=== PATIENT | male | born 1945 | race Caucasian/White ===

== ENCOUNTER 2019-07-06 15:52 | Emergency (ER) | payer MEDICARE, OTHER ==
[2019-07-06] MEDS ORDERED: Lidocaine 1% 10 ML MDV INJECT ONE (17:03)
--- NOTE | 2019-07-06 17:12 | EDM.PDOC ---
ED HPI GENERAL MEDICAL PROBLEM - General Chief Complaint: Laceration Stated Complaint: R HAND LAC Time Seen by Provider: 07/06/19 16:18 Source of Information: Reports: Patient, RN Notes Reviewed History Limitations: Reports: No Limitations - History of Present Illness INITIAL COMMENTS - FREE TEXT/NARRATIVE: Patient is a 74-year-old male who presents to the ED for the evaluation of a right index finger and right thumb laceration. Patient notes that around 3:30 PM today, he was using a miter saw to cut a piece of trim for a picture frame, when the miter saw ended up lacerating his right index finger, and the nail of his right thumb. Patient notes that he is right-hand dominant. This laceration is around 4 cm in length, fairly linear, and extends over the DIP and the PIP, this is on the radial aspect of the index finger. Patient is able to move the finger in all range of motion. He denies any numbness or tingling distal to the injury site. As for the thumb, there is a gouge taken out of the most distal nail tip, but there is no actual laceration that would be fixable on the thumb. Patient believes he is up-to-date on his tetanus immunization. Takes only aspirin daily for heart health, he is not on any actual blood thinner. Right Finger-Index Pain Score (Numeric/FACES): 8 - Related Data Allergies Allergy/AdvReac Type Severity Reaction Status Date / Time tramadol Allergy Other Verified 07/06/19 16:26 Home Meds: Home Meds Aspirin [Adult Low Dose Aspirin EC] 81 mg 07/06/19 [History] Doxycycline [Vibramycin] 100 mg PO BID #20 tab 07/06/19 [Rx] Metoprolol Tartrate 25 mg PO 07/06/19 [History] Past Medical History HEENT History: Reports: None Cardiovascular History: Reports: None Respiratory History: Reports: None Gastrointestinal History: Reports: None Genitourinary History: Reports: None Musculoskeletal History: Reports: Amputation, Arthritis Other Musculoskeletal History: amputation of some fingers with reattachment, back surgey Neurological History: Reports: None Psychiatric History: Reports: None Endocrine/Metabolic History: Reports: None Hematologic History: Reports: None Immunologic History: Reports: None Oncologic (Cancer) History: Reports: Malignant Melanoma Other Oncologic History: melanoma on his lip Dermatologic History: Reports: None Social & Family History - Tobacco Use Smoking Status *Q: Former Smoker Used Tobacco, but Quit: Yes Month/Year Tobacco Last Used: 40 - Caffeine Use Caffeine Use: Reports: Coffee - Recreational Drug Use Recreational Drug Use: No ED ROS GENERAL - Review of Systems Review Of Systems: Comprehensive ROS is negative, except as noted in HPI. Skin: Reports: Wound (see HPI) Neurological: Denies: Numbness, Tingling ED EXAM, SKIN/RASH Exam: See Below Exam Limited By: No Limitations General Appearance: Alert, WD/WN, No Apparent Distress Respiratory/Chest: No Respiratory Distress, Lungs Clear, Normal Breath Sounds, No Accessory Muscle Use, Chest Non-Tender Cardiovascular: Normal Peripheral Pulses, Regular Rate, Rhythm, No Murmur Peripheral Pulses: 3+: Radial (L), Radial (R) Extremities: Normal Inspection (with exception of R index finger and thumb), Normal Range of Motion, Normal Capillary Refill Neurological: Alert, Oriented, Normal Cognition, No Motor/Sensory Deficits Psychiatric: Normal Affect, Normal Mood Skin: Warm, Dry, Normal Color, No Rash, Wound/Incision (4 cm linear laceration to the radial aspect of the right index finger. Range of motion is intact. Denies any numbness or tingling distal to the injury. Right thumb: There is a gouge taken out of the most distal nail tip, there is no laceration that would be able to be repaired on the right thumb.) ED SKIN PROCEDURES - Laceration/Wound Repair Right Lateral Digit - 2nd (Index) Appearance: Subcutaneous, Mildly Contaminated Distal NVT: Neuro & Vascular Intact, No Tendon Injury Anesthetic Type: Local Local Anesthesia - Lidocaine (Xylocaine): 1% Plain Local Anesthetic Volume: 4cc Skin Prep: Chlorhexidine (Hibiciens), Saline Exploration/Debridement/Repair: Wound Explored, In a Bloodless Field, Explored to Base, No Foreign Material Found Closed with: Sutures Lac/Wound length In cm: 4 Suture Size: 4-0 # of Sutures: 8 Suture Type: Prolene, Interrupted, Simple Sterile Dressing Applied: Nurse Tetanus Status Addressed: Yes Complications: No Right Posterior Distal Digit - 1st (Thumb) Appearance: Superficial, Clean Distal NVT: Neuro & Vascular Intact, No Tendon Injury Skin Prep: Chlorhexidine (Hibiciens), Saline Exploration/Debridement/Repair: Wound Explored, In a Bloodless Field, Explored to Base, No Foreign Material Found Closed with: Dermabond Lac/Wound length In cm: 1 (This wound was a gouge in the patient's distal nail tip, there was no way to repair other than placing topical Dermabond to achieve hemostasis.) Course - Vital Signs Last Recorded V/S: Last Vital Signs Temp 97.9 F 07/06/19 16:17 Pulse 84 07/06/19 16:17 Resp 18 07/06/19 16:17 BP 126/84 07/06/19 16:17 Pulse Ox 94 L 07/06/19 16:17 - Orders/Labs/Meds Orders: Active Orders 24 hr Category Date Time Status Hand Comp Min 3V Rt [CR] Stat Exams 07/06/19 16:18 Ordered Meds: Medications Discontinued Medications Generic Name Dose Route Start Last Admin Trade Name Freq PRN Reason Stop Dose Admin Lidocaine HCl 10 ml 07/06/19 17:03 07/06/19 17:21 Xylocaine 1% INJECT 07/06/19 17:04 10 ml ONETIME ONE Administration - Re-Assessments/Exams Free Text/Narrative Re-Assessment/Exam: 07/06/19 17:53 Patient presents to the ED for evaluation of a laceration to the index finger of his right hand. X-rays were obtained due to the nature of the injury, and it does appear that the patient took a nap out of the base of the middle phalanx on the radial aspect, this was appreciated by both Dr. Aguilera and myself. Patient will be given doxycycline on outpatient basis and will also immobilize the finger with a aluminum foam cage splint. All other superficial lacerations were repaired with Dermabond. Departure - Departure Time of Disposition: 17:14 Disposition: Home, Self-Care 01 Condition: Fair Clinical Impression: Laceration of finger nail bed Qualifiers: Encounter type: initial encounter Qualified Code(s): S61.319A - Laceration without foreign body of unspecified finger with damage to nail, initial encounter Laceration of index finger of left hand without complication Qualifiers: Encounter type: initial encounter Qualified Code(s): S61.211A - Laceration without foreign body of left index finger without damage to nail, initial encounter - Discharge Information *PRESCRIPTION DRUG MONITORING PROGRAM REVIEWED*: No *COPY OF PRESCRIPTION DRUG MONITORING REPORT IN PATIENT VALARIE: No Prescriptions: Doxycycline [Vibramycin] 100 mg PO BID #20 tab Instructions: Sutured Wound Care, [id number] Referrals: Raz Paiz MD [Primary Care Provider] - Forms: ED Department Discharge Additional Instructions: You have been evaluated in the ED for your laceration. Sutures will need to stay in for 14 days (07/20/19). You may return to the ED or clinic for removal. X-rays demonstrated that you took a possible neck out of the middle bone in your index finger, you will require antibiotics for this, you will be given a prescription for doxycycline 100 mg twice daily for 10 days. Please keep this area clean and dry, you may cleanse with regular soap and water. No vigorous scrubbing. Watch out for signs of infection like increased redness, swelling, pain at the laceration site, or if you should develop any fevers or chills. Please return to ED if your symptoms change or worsen. Sepsis Event Note - Evaluation Sepsis Screening Result: No Definite Risk - Focused Exam Vital Signs: Vital Signs Temp Pulse Resp BP Pulse Ox 07/06/19 16:17 97.9 F 84 18 126/84 94 L Date Exam was Performed: 07/06/19 Time Exam was Performed: 17:50 - My Orders Last 24 Hours: My Active Orders 07/06/19 16:18 Hand Comp Min 3V Rt [CR] Stat - Assessment/Plan Last 24 Hours: My Active Orders 07/06/19 16:18 Hand Comp Min 3V Rt [CR] Stat
--- NOTE | 2019-07-08 07:23 | CR ---
Right hand: Three views of the right hand were obtained. Scattered joint space narrowing within the MCP, DIP and PIP joints is noted. Bony structures are osteopenic. Small bony defect is noted off the base of the middle phalanx of the 2nd digit presumably due to small bony amputation. There is soft tissue injury being seen in this area. No additional bony abnormality is seen. Impression: 1. Degenerative change as noted above. 2. Small bony defect which is felt compatible with small bony amputation which is most likely acute as there is overlying soft tissue injury and involves the corner base of the middle phalanx of the right 2nd finger. Diagnostic code #3 This report was dictated in [place] Standard Time
== END 2019-07-06 18:03 | disposition home or self-care (01) ==
LOC: JD.ED 15:52
DX: S61.111A Laceration without foreign body of right thumb with damage to nail, initial encounter (principal); S61.210A Laceration without foreign body of right index finger without damage to nail, initial encounter; Z87.891 Personal history of nicotine dependence; W27.0XXA Contact with workbench tool, initial encounter
CPT/HCPCS: 12002; 73130; 99283; J2001

== ENCOUNTER 2019-07-20 17:31 | Emergency (ER) | payer MEDICARE, OTHER | END 2019-07-20 18:00 | disposition home or self-care (01) | LOC: JD.ED 17:31 | DX: Z48.02 Encounter for removal of sutures (principal) | CPT/HCPCS: 12002; 99281; 99282 ==